=== PATIENT | female | born 1975 | race Caucasian/White ===

== ENCOUNTER 2017-05-18 12:14 | Observation (INO) ==
--- NOTE | 2017-05-18 14:35 | ED.PDOC ---
General ED Provider: Dr. BJORN BRASHER Chief Complaint: Hypertension Stated Complaint: Has BP checked at [facility] and was elevated to dangerous levels 220/110.Was advised to come to the ER/. a [place] [employer] encouraged her to come to ER. PMH iron deficiency Anemia. Has gastric by pass surgery 10 years ago. Patient states that she hasn't felt well and has been under a lot of stress for last 6 months. Her elderly mother resides with her and family and is getting which is causing much stress in her family. She states for 2 months she has had intermittent shortness of breath along with headaches. In addition she has experienced intermittent chest pain for last week. Time Seen by Physician: 12:40 Mode of Arrival: Walk-In Information Source: Patient Primary Care Provider: [facility] Nursing and Triage Documentation Reviewed and Agree: Yes Reviewed sepsis parameters & appropriate labs ordered?: Yes System Inflammatory Response Syndrome: Not Applicable Sepsis Protocol: For patient's 13 years and over: Temp is 96.8 and below OR 101 and greater Pulse >90 BPM Resp >20/minute Acutely Altered Mental Status Are patient's symptoms suggestive of a new infection, such as: -Pneumonia -Skin, Soft Tissue -Endocarditis -UTI -Bone, Joint Infection -Implantable Device -Acute Abdominal Infection -Wound Infection -Meningitis -Blood Stream Catheter Infection -Unknown System Inflammatory Response Syndrome: Not Applicable Cardiovascular Complaint Exam - Hypertension Complaint/Exam Symptoms Are: Still present Timing: Constant Aggravating: Reports: Exertion Alleviating: Reports: Rest Associated Signs and Symptoms: Reports: Chest pain, Anxiety, Numbness, Tingling , Weakness, Dizziness, Short of air, Swelling Related History: Reports: Current Jerman Inhibitors. Denies: Similar episode Related Surgical History: Reports: None Cardiac Risk Factors: Reports: Hypertension, Family history Papilledema Present: No JVD Present: No Carotid Bruit Present: No Femoral Pulses Bounding: No Differential Diagnoses: Hypertension, Hypertensive Urgency Review of Systems - Review Of Systems Constitutional: Reports: No symptoms Eyes: Reports: No symptoms Ears, Nose, Mouth, Throat: Reports: No symptoms Respiratory: Reports: No symptoms Cardiac: Reports: No symptoms GI: Reports: No symptoms : Reports: No symptoms Musculoskeletal: Reports: No symptoms Skin: Reports: No symptoms Neurological: Reports: No symptoms Endocrine: Reports: No symptoms Hematologic/Lymphatic: Reports: No symptoms All Other Systems: Reviewed and Negative Past Medical History - Past Medical History Endocrine: Reports: None Cardiovascular: Reports: None Respiratory: Reports: None Hematological: Reports: None Gastrointestinal: Reports: None Genitourinary: Reports: None Neuro/Psych: Reports: None Musculoskeletal: Reports: Unknown Cancer: Reports: None Last Menstrual Period: 04/20/17 - Surgical History General Surgical History: Reports: Unknown - Family History Family History: Reports: Unknown - Social History Smoking Status: Vaping Hx Substance Use: No Alcohol Screening: None Physical Exam - Physical Exam Appearance: Ill-appearing, No pain distress, Well-nourished, Obese Eyes: FELICITY, EOMI, Conjunctiva clear ENT: Ears normal, Nose normal, Oropharynx normal Respiratory: Airway patent, Breath sounds clear, Breath sounds equal, Respirations nonlabored Cardiovascular: RRR, Pulses normal, No rub, No murmur GI/: Soft, Nontender, No masses, Bowel sounds normal, No Organomegaly Musculoskeletal: Normal strength, ROM intact, No edema, No calf tenderness Skin: Warm, Dry, Normal color Neurological: Sensation intact, Motor intact, Reflexes intact, Cranial nerves intact, Alert, Oriented Psychiatric: Affect appropriate, Mood appropriate Critical Care Note - Critical Care Note Total Time (mins): 60 Course - Course Hematology/Chemistry: 05/19/17 09:50 05/19/17 05:00 Orders, Labs, Meds: Lab Review 05/18/17 05/18/17 05/18/17 14:40 14:40 14:40 WBC 9.00 RBC 3.97 L Hgb 7.4 L Hct 28.1 L MCV 70.8 L MCH 18.6 L MCHC 26.3 L RDW Coeff of Zaynab 20.0 H Plt Count 542 H Neutrophils % (Manual) 64.0 Lymphocytes % (Manual) 32.0 Monocytes % (Manual) 2.0 Eosinophils % (Manual) 2.0 Anisocytosis Not present Sodium 140 Potassium 3.6 Chloride 106 Carbon Dioxide 22 Anion Gap 15.6 BUN 12 Creatinine 0.72 Estimated GFR (MDRD) 89.00 BUN/Creatinine Ratio 16.66 Glucose 127 H Calcium 9.3 Total Bilirubin 0.4 AST 13 L ALT 6 L Alkaline Phosphatase 78 Total Protein 7.7 Albumin 3.8 Globulin 3.9 Albumin/Globulin Ratio 0.97 Serum , Qual Negative Urine Color Urine Clarity Urine pH Ur Specific Pioche Urine Protein Urine Glucose (UA) Urine Ketones Urine Blood Urine Nitrite Urine Bilirubin Urine Urobilinogen Ur Leukocyte Esterase 05/18/17 14:55 WBC RBC Hgb Hct MCV MCH MCHC RDW Coeff of Zaynab Plt Count Neutrophils % (Manual) Lymphocytes % (Manual) Monocytes % (Manual) Eosinophils % (Manual) Anisocytosis Sodium Potassium Chloride Carbon Dioxide Anion Gap BUN Creatinine Estimated GFR (MDRD) BUN/Creatinine Ratio Glucose Calcium Total Bilirubin AST ALT Alkaline Phosphatase Total Protein Albumin Globulin Albumin/Globulin Ratio Serum , Qual Urine Color Yellow Urine Clarity Clear Urine pH 6.0 Ur Specific Pioche 1.010 Urine Protein Negative Urine Glucose (UA) Negative Urine Ketones Negative Urine Blood Negative Urine Nitrite Negative Urine Bilirubin Negative Urine Urobilinogen 0.2 Ur Leukocyte Esterase Negative Orders Category Date Time Status EKG-(ED ONLY) Stat CARDIO 05/18/17 14:35 Completed CBC W/ AUTO DIFF Stat LAB 05/18/17 14:40 Completed CMP [COMPREHENSIVE METABOLIC PANEL] Stat LAB 05/18/17 14:40 Completed MANUAL DIFFERENTIAL Stat LAB 05/18/17 14:40 Completed SERUM TEST [SERUM ] Stat LAB 05/18/17 14:40 Completed UA [URINALYSIS C & S IF INDICATED] Stat LAB 05/18/17 14:55 Completed Clonidine HCl [Catapres] MEDS 05/18/17 14:40 Discontinued 0.1 mg PO ONCE STA CHEST, 2 VIEWS PA & LAT Stat RADS 05/18/17 14:35 Completed Medications Discontinued Medications Generic Name Dose Route Start Last Admin Trade Name Freq PRN Reason Stop Dose Admin Acetaminophen 650 mg 05/18/17 18:09 Tylenol PO Q4H PRN pain Amlodipine Besylate 5 mg 05/18/17 21:30 05/19/17 08:55 Norvasc PO 5 mg DAILY JOE Administration Clonidine 0.1 mg 05/18/17 14:40 05/18/17 15:00 Catapres PO 05/18/17 14:41 0.1 mg ONCE STA Administration Clonidine 0.1 mg 05/18/17 21:00 05/19/17 08:55 Catapres PO 0.1 mg BID JOE Administration Enoxaparin Sodium 40 mg 05/18/17 18:30 05/19/17 08:56 Lovenox SUBCUT Not Given DAILY JOE Lisinopril 20 mg 05/18/17 21:30 05/19/17 08:55 Zestril PO 20 mg DAILY JOE Administration Lorazepam 0.5 mg 05/18/17 18:24 05/19/17 09:57 Ativan PO 0.5 mg TID PRN Administration Anxiety Pantoprazole Sodium 40 mg 05/19/17 09:00 05/19/17 09:48 Protonix Iv IVP 40 mg DAILY JOE Administration Vital Signs: Temp Pulse Resp BP Pulse Ox 05/18/17 17:41 74 15 165/80 H 99 05/18/17 17:26 83 14 215/94 H 98 05/18/17 12:50 199/86 H 05/18/17 12:17 99.4 F 110 H 16 224/117 H 97 CARLEY Risk Score CARLEY Risk Score: Risk Score Odds of by 30D 0 0.1 (0.1-0.2) 1 0.3 (0.2-0.3) 2 0.4 (0.3-0.5) 3 0.7 (0.6-0.9) 4 1.2 (1.0-1.5) 5 2.2 (1.9-2.6) 6 3.0 (2.5-3.6) 7 4.8 (3.8-6.1) Departure - Departure Time of Disposition: 18:00 Disposition: PLACED OBSERVATION Discharge Problem: Accelerated hypertension Condition: Fair Pt referred to PMD for follow-up: Yes (pcp) IPMP verified?: No Allergies/Adverse Reactions: Allergies fluconazole [From Diflucan] Adverse Reaction (Verified 05/18/17 12:22) Lamberton's wort Adverse Reaction (Verified 07/05/15 14:26) Home Medications: Ambulatory Orders Calcium Carbonate/Vitamin D3 [Calcium 500+D Tablet Chew] 1 each PO DAILY Multivitamin 1 cap PO DAILY 05/18/17 Omeprazole Magnesium [Prilosec Otc] 20 mg PO DAILY 05/18/17 Amlodipine Besylate [Norvasc] 5 mg PO DAILY #30 tablet 05/19/17 Disposition Discussed With: Patient
[2017-05-18] MEDS ORDERED: CATAPRES PO STA (14:40)
--- NOTE | 2017-05-18 15:33 | DI ---
EXAM: Chest two view, frontal and lateral views. HISTORY: Chest pain. COMPARISON: None available. FINDINGS: The heart size is normal. There is no pulmonary vascular congestion. The lungs are clear . No pleural effusion or pneumothorax is seen. No acute osseous abnormality identified. There is e xaggeration of the normal kyphosis centered in the lower thoracic spine. IMPRESSION: No acute cardiopulmonary process.
[2017-05-18] MEDS ORDERED: TYLENOL PO PRN (18:09)
[2017-05-18 18:52] VITALS: BMI 29.7
[2017-05-18] MEDS: LOVENOX SUBCUT SCH (21:27)
[2017-05-18] MEDS: NORVASC PO SCH (21:33)
[2017-05-18] MEDS: CATAPRES PO SCH (21:33)
[2017-05-18] MEDS: ATIVAN PO PRN (21:34)
[2017-05-18] MEDS: ZESTRIL PO SCH (21:34)
[2017-05-19] MEDS: CATAPRES PO SCH (08:55)
[2017-05-19] MEDS: ZESTRIL PO SCH (08:55)
[2017-05-19] MEDS: NORVASC PO SCH (08:55)
[2017-05-19] MEDS: LOVENOX SUBCUT SCH (08:56)
[2017-05-19] MEDS ORDERED: PROTONIX IV IVP SCH (09:00)
[2017-05-19] MEDS: ATIVAN PO PRN (09:57)
[2017-05-19 11:18] VITALS: TEMP 97.6
[2017-05-19 11:26] VITALS: BP 133/67
--- NOTE | 2017-05-22 11:15 | HP ---
CHIEF COMPLAINT: Hypertension SOURCE OF HISTORY: The patient HISTORY OF PRESENT ILLNESS: The patient was at [facility] and had her blood pressure checked at a walk in clinic, the blood pressure was 220/110 and she had a headache also. She was advised to seek emergency room consultation and treatment. The patient at the urging of her presented to [facility] and was initially assessed and treated by the ER physician. The patient's blood pressure indeed was high systolic and diastolic and was given 0.1mg PO Clonidine. The patient claimed that she had not been feeling well for the last six months. She tires easily and is also under a lot of stress since her mother is residing with her. She had three children and her . The mother also has generalized weakness of debility as well senility. The mother and her step-father are undergoing a divorce proceeding. The presents of the mother cause some disruption in the family. She had also experienced some intermittent dyspnea in the last two month, intermittent chest pain lower sternal in the last two weeks. Asked her to point out the source of the pain or the area of the pain on the chest and she points to the end of the sternum, epigastric area and maybe in the lower sternal area.The patient is not accompanied nausea or diaphoresis. The patient's workup showed severe anemia, iron deficiency macrocytic hyperchromic. She had been treated with Iron infusion some 5-6 years ago. She had not seen a doctor for greater than 5 years. PAST PERSONAL HISTORY: Markedly obese and weights as much as 370 pounds and did go down to 300 pounds since laparoscopic surgery could not be accomplished at 378. She did not lose 70 pounds to 300 and did under go gastric bypass 2002. The patient did lose some more weight from the gastric bypass and could not remember how much she weighed 6 months after the bypass but she then got at that point. She told me that her lowest weight was 180 pounds post bypass. The patient had also been experiencing headaches for some time. She also has been diagnosed with restless leg syndrome and this maybe secondary to the severe anemia, iron deficiency. She had a section on her third child because of preeclampsia. She had a colonoscopy as well as endoscopy maybe three years but she tell me that she hasn't seen a doctor for 5-6 years. Course of the endoscopy the patient was told that she had an ulcer in the stomach which I think is an anastomotic ulcer from the bypass. She has been to the clinical transplant coordinator at [facility] and she was scheduled to have a pap smear but that was not accomplished since she lost her insurance. She does admit to have some vaginal stain after an intercourse with her . In the course of the pelvic examination the cervix is very close to the vaginal opening and do believe that this patient probably has some sort of a prolapse and also a retroverted uterus. This might have been the reason for the blood stain post intercourse. The patient had not had any mammogram. This patient also had kidney stones 24 years ago, no admission. FAMILY HISTORY: Mother had diabetes mellitus and myocardial infarction as well as kidney disease and liver disease (TEJ). Father had diabetes mellitus as well as myocardial infarction and with the CASIMIRO greater than 60 years of age. SOCIAL HISTORY: The patient is and resides with her and three children. Her mother is with her at home temporarily. Mother from my understanding has senile dementia as well as generalized weakness that she is not able to walk on her own. Her mother and her mothers are undergoing a divorce proceeding. The presence of the mother in the family is causing quite an added strain. She used to smoke cigarettes but stopped 5 years ago and is now vaping. Her menstrual cycle are regular and not particularly heavy because of the anemia. The patient was not on any antihypertensive medications when she presented to the emergency room. MEDICATIONS: Multivitamin one capsule daily Calcium carbonate/Vitamin D 3 one daily Omeprazole 20mg daily ALLERGIES: Fluconazole Zoey's wort REVIEW OF SYSTEMS: CONSTITUTIONAL: The patient has no fever or chills but fatigue. POSTPARTUM NURSE: The patient has headache and had been experiencing it chronically but without seizure disorder, syncopal episode or dizziness. She just doesn't feel good. VISUAL: Denies any blurred vision, double vision or transient loss of vision. AUDITORY: Hearing is adequate. Denies any tinnitus, pain or drainage. RESPIRATORY: Denies any cough that is significant, no shortness of breath at this time although she does have with exertion which is probably due to the anemia. CARDIOVASCULAR: This patient has intermittent chest pain but does not have any at this time. She is also markedly hypertensive and had not been on any medications. She had not seen a doctor greater than 5 months according to her and that the link of the hypertension probably maybe that reason. GASTROINTESTINAL: The patient has some epigastric pain as well as tenderness. She has been taking Prilosec over the counter. She had not seen again a doctor in the last 5-6 years however she mentioned that she had an endoscopy and colonoscopy three years ago. That maybe questionable. During that time the patient was diagnosed to have anastomotic ulcer and also had severe anemia. She had a history of iron infusion several years ago. I could not find that in the [facility] since [facility] began some three years ago and it was 5 years then it would be in the hospital record but not on the [facility]. GENITOURINARY: Denies any pain on urination or frequency. No urgency. GYNECOLOGICAL HISTORY: Grava 3 para 2. section 1, the was done due to pre-eclampsia on the youngest. The children were born in different places since her was in the services. She has blood stains after intercourse with her . MUSCULOSKELETAL: No significant joint pains. ENDOCRINE: Negative. Still has an elevated BMI in spite of the gastric bypass. She weighs 196 pounds now and her lost weight 180 pounds according to her. HEMATOLOGIC: Severe anemia, iron deficiency probably secondary to the continued GI bleed probably from the anastomotic ulcer. Claims to have some mild bleeding tendency. PSYCHIATRIC: The patient's affect is normal but she is under a lot of stress from the home situation with her mother being at home. Her mother made her promise not to put her mother in the [place] [facility]. PHYSICAL EXAMINATION: GENERAL: We have a 43 year old female admitted to the hospital because of hypertension, severe and severe anemia with intermittent chest pain and headaches. VITAL SIGNS: Temperature 99.4, pulse 110, respiratory rate 16 per minute, oxygen saturation 97 at room air, blood pressure 224/117. Does complaint of headache, does have history of migraine headaches. HEAD: Unremarkably. Scalp has no active dermitis. FACE: Symmetrical and equal with no facial weakness and no tenderness to palpation under pressure in the frontal maxillary sinus areas. EYES: Pupils equal/reactive to light. About 4mm in size and round. Conjunctivae not pale. Sclerae not icteric. MOUTH: Unremarkable. THROAT: No inflammation, tumors or exudate. NECK: No masses. No bruit. No tenderness. No rigidity. CHEST: Essentially symmetrical and equal with good expansion. No remarkably tenderness. BREAST: Symmetrical and equal. Nipple not retracted. Skin appears normal, no dominant tumor masses. No tenderness. Axilla negative for any adenopathies or tumors. LUNGS: Breath sounds are diminished bilaterally. No rales or wheezing. HEART: Audible and regular with good tones. No murmurs. ABDOMEN: Pendulous, soft with no significant tenderness. No masses and bruit. Bowel are normal and active. EXTERNAL GENITALIA: Appears normal. Pelvic examination the cervix is close to the opening of the vagina. It doesn't feel hard or rough. There is no blood in the examining finger. The uterus is retroverted and no adnexal tenderness or masses. It is somewhat limited because the patient is still is obese. The patient probably has a uterine prolapse. RECTAL: Anal sphincter is more or less adequate. Rectal canal no tumor masses. Stool is brownish in color and no obvious blood. Anterior rectal wall as some firm area which is probably the body of the uterus. No significant tenderness. Hemoccult specimen was obtained. LOWER EXTREMITIES: Symmetrical and equal. No edema. Pedal pulses diminished. UPPER EXTREMITIES: Symmetrical and equal. ASSESSMENT: 1. Hypertension, severe, improved 2. Severe anemia, iron deficiency (macrocytic hyperchromic) 3. History of peptic ulcer disease/Anastomotic ulcer 4. Chronic tobacco use and abuse, smoking now vaping 5. History of migraine headaches 6. History of fracture to right ankle 7. History of gastric bypass 8. Persistent BMI elevation 29.8. MTDD
--- NOTE | 2017-05-22 13:23 | DS ---
PATIENT IDENTIFICATION: 42 year old female who presented to the [facility] room after she had been to the clinic at [facility]. Her blood pressure was measured at 220/110. She also was complaining of headaches, but not visual disturbances. She was advised to present herself to ER and she did. The patient's blood pressure at the emergency room at [facility] was measured at 224/117. The patient at the emergency room had a hemoglobin of 7.4, hematocrit 28.1, RBC 3.97, elevated platelet count 542,000, normal WBC 9,000. Retic hemoglobin equivalent 16.3. The patient was given Clonidine in the ER and the blood pressure did come down to 160 and was then subsequently admitted. The reason for admission is hypertension and next severe anemia and would require transfusion. HOSPITAL COURSE: The patient was continued on Clonidine 0.1 mg twice a day and Lisinopril 20 mg daily, plus Amlodipine 5 mg daily. Protonix IV was instituted instead of the Prilosec. She also was given Lorazepam 0.5 mg three times a day. The patient while in the hospital was given 2 units of packed red cells. This patient was advised about the possible reactions with the blood transfusion. The blood is quite clean now that there are no diseases being transmitted in very rare cases only. The cases transmitted via the blood is AIDS. A reticulocyte count was 2.11. Electrolytes were normal. Renal panel normal. Serum iron was low at 10, normal 50-170 nanograms per dL. This patient was given 2 units again and the next blood test done 05/19/17 showed an improvement of the hemoglobin and hematocrit. It did go up to 8.5 hemoglobin from 7.4 and hematocrit to 29.6 from 28.1. The platelet count has returned normal at 426,000. WBC remained normal at 8,690. The PT INR were normal. The patient's Hemoccult during rectal examination was positive and the urinalysis was completely normal. The patient at discharge is alert, ambulatory and cheerful. I did advise her about the improvement of her hemoglobin and hematocrit, but the workup is not done. She needs to take iron medication and also probably continue a PPI for a length of time. It would not be diana to continue PPI, more so that she had a bypass surgery. She needs to have replacement consisting of multivitamin and definitely iron. She is probably losing that from the chronic bleeding and maybe some malabsorption problem because of the bypass. Vitamin D 25 hydroxy level is normal at 26. B12 is at the lower normal and serum folate was elevated 31.8. The patient at the time of discharge was alert, ambulatory with no distress, no chest pain, no significant headaches. She was feeling better. VITAL SIGNS: At 10 a.m. showed a temperature 97.6, pulse 72, blood pressure 127 /71, respiratory rate 18, oxygen saturation 95 at room air. This patient was advised to stop vaping. She should start a regular graduated exercise, such as walking and eat less amount of salt and take the medication as prescribed. She was advised very strongly to follow with the provider regularly for the blood pressure checks and regulation and also for the anemia. I advised her that she will prescribed a low dose of iron, Feosol 45 mg tablet daily. Iron is absorbed at the lower dose. FINAL DIAGNOSES: 1. HYPERTENSION, SEVERE, CONTROLLED 2. SEVERE ANEMIA MICROCYTIC HYPOCHROMIC, PROBABLY SECONDARY TO CHRONIC GI BLEED , ANASTOMOTIC ULCER 3. HISTORY OF GASTRIC BYPASS 4. HISTORY OF ANASTOMOTIC ULCER BY ENDOSCOPY 5. PROBABLE UTERINE PROLAPSE 6. CHRONIC TOBACCO USE AND ABUSE, NOW VAPING FOR FIVE YEARS PROGNOSIS: Guarded. MTDD
== END 2017-05-19 15:00 | disposition home or self-care (01) ==
LOC: ED 12:14 → MEDSURG A 17:51 → INTOOBSV 17:51
PROVIDERS: ADMIT General Practice; ATTEND General Practice
DX: I10 Essential (primary) hypertension (principal); D50.9 Iron deficiency anemia, unspecified; R07.9 Chest pain, unspecified; R06.02 Shortness of breath; R51 Headache; E66.9 Obesity, unspecified; F17.290 Nicotine dependence, other tobacco product, uncomplicated; Z68.29 Body mass index [BMI] 29.0-29.9, adult; Z98.84 Bariatric surgery status; Z87.891 Personal history of nicotine dependence
CPT/HCPCS: 36415; 36430; 80048; 80053; 80061; 81001; 82272; 82306; 82607; 82746; 83036; 83540; 83550; 84703; 85007; 85014; 85018; 85025; 85045; 85610; 86850; 86900; 86922; 93005; 93010; 99284

== ENCOUNTER 2017-06-19 12:22 | Outpatient (CLI) | END 2017-06-19 12:23 | disposition home or self-care (01) | LOC: RHC-LAB 12:22 | PROVIDERS: ATTEND Emergency Medicine | DX: D50.9 Iron deficiency anemia, unspecified (principal) | CPT/HCPCS: 36415; 82306; 85008; 85025 ==

== ENCOUNTER 2017-06-28 09:08 | Outpatient (CLI) | END 2017-06-28 09:09 | disposition home or self-care (01) | LOC: RHC-LAB 09:08 | PROVIDERS: ATTEND Nurse Practitioner Family | DX: D50.9 Iron deficiency anemia, unspecified (principal); I10 Essential (primary) hypertension | CPT/HCPCS: 36415; 80053; 85008; 85025 ==

== ENCOUNTER 2017-07-04 08:52 | Outpatient (CLI) | END 2017-07-04 08:53 | disposition home or self-care (01) | LOC: LAB 08:52 | PROVIDERS: ATTEND Nurse Practitioner Family | DX: R21 Rash and other nonspecific skin eruption (principal); Z82.69 Family history of other diseases of the musculoskeletal system and connective tissue; B35.4 Tinea corporis; Z79.899 Other long term (current) drug therapy | CPT/HCPCS: 36415; 80053; 85651; 86038; 86140; 86225 ==

== ENCOUNTER 2017-10-18 08:25 | Outpatient (CLI) | END 2017-10-18 08:26 | disposition home or self-care (01) | LOC: LAB 08:25 | PROVIDERS: ATTEND Nurse Practitioner Family | DX: D50.9 Iron deficiency anemia, unspecified (principal); I10 Essential (primary) hypertension | CPT/HCPCS: 36415; 80053; 85025 ==

== ENCOUNTER 2017-11-01 08:18 | Outpatient (CLI) | END 2017-11-01 08:19 | disposition home or self-care (01) | LOC: LAB 08:18 | PROVIDERS: ATTEND Nurse Practitioner Family | DX: E87.5 Hyperkalemia (principal); D50.9 Iron deficiency anemia, unspecified; I10 Essential (primary) hypertension; F41.1 Generalized anxiety disorder | CPT/HCPCS: 36415; 84132 ==

== ENCOUNTER 2018-02-13 09:22 | Outpatient (CLI) | END 2018-02-13 09:23 | disposition home or self-care (01) | LOC: LAB 09:22 | PROVIDERS: ATTEND Nurse Practitioner Family | DX: F41.1 Generalized anxiety disorder (principal); R13.10 Dysphagia, unspecified; I10 Essential (primary) hypertension; D50.9 Iron deficiency anemia, unspecified | CPT/HCPCS: 36415; 80053; 84443; 85025 ==

== ENCOUNTER 2018-02-22 08:14 | Outpatient (CLI) | END 2018-02-22 08:15 | disposition home or self-care (01) | LOC: LAB 08:14 | PROVIDERS: ATTEND Nurse Practitioner Family | DX: D50.9 Iron deficiency anemia, unspecified (principal); Z98.84 Bariatric surgery status | CPT/HCPCS: 36415; 82525; 82607; 82728; 82746; 83540; 83550; 84466; 85025; 85045 ==

== ENCOUNTER 2018-02-23 09:58 | Outpatient (CLI) ==
--- NOTE | 2018-02-23 10:37 | CT ---
EXAM: CT of the abdomen pelvis without contrast History: Nausea. Comparison: None available. Technique: Multiplanar CT images through the abdomen pelvis were obtained without the administration of IV contrast Findings: 6 mm right middle lobe pleural-based nodule. There is generalized body wall edema. Postsurgical changes of the stomach. Gallbladder is distended . No focal liver or splenic lesions. No peripancreatic inflammation. Adrenal glands are unremarkab le. No renal stones and no hydronephrosis. No bowel obstruction. Scattered colonic stool. No blad jaun wall thickening. No free air. The appendix is not seen. Evaluation for lymph nodes is limited due to the lack of contrast administration. Trace nonspecific pelvic fluid. Impression: 1. Gallbladder distension. 2. No bowel obstruction. 3. Body wall edema. 4. Trace nonspecific pelvic fluid. 5. 6 mm pleural based right middle lobe lung nodule. Recommend follow-up chest CT in 6 months.
== END 2018-02-23 09:59 | disposition home or self-care (01) ==
LOC: RAD 09:58
PROVIDERS: ATTEND Nurse Practitioner Family
DX: R11.0 Nausea (principal); R63.4 Abnormal weight loss; Z98.84 Bariatric surgery status

== ENCOUNTER 2018-06-14 08:18 | Outpatient (CLI) | END 2018-06-14 08:19 | disposition home or self-care (01) | LOC: RHC-LAB 08:18 | PROVIDERS: ATTEND Nurse Practitioner Family | DX: D50.9 Iron deficiency anemia, unspecified (principal); I10 Essential (primary) hypertension | CPT/HCPCS: 36415; 80053; 80061; 85025 ==

== ENCOUNTER 2018-07-18 10:22 | Outpatient (CLI) | END 2018-07-18 10:23 | disposition home or self-care (01) | LOC: RHC-LAB 10:22 | PROVIDERS: ATTEND Nurse Practitioner Family | DX: R79.9 Abnormal finding of blood chemistry, unspecified (principal) | CPT/HCPCS: 36415; 80053 ==